=== PATIENT | female | born 1965 | race Hispanic/Latino ===

== ENCOUNTER 2019-02-05 16:50 | Emergency (ER) | payer SELFPAY ==
[~2019-02-05] VITALS: Ht 152.4 cm; Wt 90.3 kg
[~2019-02-05 16:50] MED LIST: AMLODIPINE BESYL5 MG PO; LEVAQUIN500 MG PO; LEVOTHYROXINE50 MCG PO; PROPRANOLOL HCL40 MG PO; ULTRAM 50MG50 MG PO
--- OUTSIDE RECORDS SUMMARY | 2019-02-05 16:53 | XMS REPORT ---
Author Author Admin, [place] Organization [facility] Address [address] [address] Phone Allergies, Adverse Reactions, Alerts Allergy Name Reaction Description Start Date Severity Status Provider No Known Allergies Wendy Bermeo MA Conditions or Problems Problem Name Problem Code Onset Date Status Entry Date Provider Comment Standard Description Annotate Gastroenteritis, viral, acute 008.8 Active Mac Love MD Intestinal infection due to other organism, not elsewhere classified Medication List Medication Instructions Start Date Stop Date Generic Name NDC Status Provider Patient Instruction No Drug Therapy Prescribed - none known did ask Mac Love MD Vital Signs Date Name Value Unit Range Description blood pressure, diastolic 77 mm[Hg] BP rene blood pressure, systolic 108 mm[Hg] BP sys height E&M 64 [in_us] Bdy height pulse rate E&M 72 /min Heart rate respiratory rate E&M 16 /min Resp rate temperature E&M 98.3 [degF] Body temperature weight E&M 190.50 [lb_av] Weight Measured Encounters Date Encounter Provider Code Facility 14:48:35 [facility] New Patient Detailed - 30012 Mac Love MD [id number] [facility]
--- OUTSIDE RECORDS SUMMARY | 2019-02-05 16:53 | XMS REPORT | Clinical Summary ---
Author Author [facility] Address Unknown Phone Unavailable Care Team Providers Care Dry Starch Supervisor Name Role Phone Kamaljit Oliveira MD PCP Allergies No Known Allergies Medications End Date Status Medication Sig Dispensed Refills Start Date Active polyethylene glycol Take 17 g by 255 g 1 (MIRALAX) 17 gram/dose mouth daily 7 oral powderIndications: Mix 17 grams Unspecified constipation into 4 to 8 ounces of water, juice, soda, tea or coffee and drink as directed, one time a day. Active hydrocortisone-pramoxine Apply 1 10 g 0 (EPIFOAM) 1-1 % topical Applicator to 7 foamIndications: affected area Unspecified hemorrhoids 3 times without mention of daily. complication Active loratadine (CLARITIN) 10 Take 1 tablet 90 tablet 1 mg tabletIndications: by mouth 8 Allergic rhinitis, daily. unspecified seasonality, unspecified trigger Active Miscellaneous Medical Nocturnal 1 Each 0 Supply MiscIndications: CPAP at 10 8 ES (obstructive sleep cmH2O with apnea) EPR=2. Active acetaminophen (TYLENOL) Take 2 30 tablet 0 500 mg tabletIndications: tablets by 8 Biliary disease mouth every 6 hours as needed for Pain. Active carvedilol (COREG) 3.125 Take 1 tablet 60 tablet 1 mg tabletIndications: by mouth 2 9 Essential hypertension times daily (with meals). Active amLODIPine (NORVASC) 5 mg Take 1 tablet 90 tablet 1 tabletIndications: by mouth 9 Essential hypertension daily. Active levothyroxine (SYNTHROID) Take 1 tablet 90 tablet 1 75 mcg tabletIndications: by mouth 9 Hypothyroidism, daily. unspecified type Active sertraline (ZOLOFT) 25 mg Take 1 tablet 90 tablet 1 tabletIndications: by mouth 9 Depression with anxiety daily. Active polyethylene glycol Add lukewarm 4000 mL 0 (GOLYTELY) 236-22.74-6.74 drinking 9 -5.86 gram oral water to the solutionIndications: fill farzad (4 Occult blood in stools liters) and shake. Drink as directed by your doctor.. Active Psyllium Husk (METAMUCIL) Take 1 90 capsule 0 0.52 gram capsule by 9 capsuleIndications: mouth daily. Constipation, unspecified constipation type Active traMADol (ULTRAM) 50 mg Take 1 tablet 12 tablet 0 tabletIndications: by mouth 9 Streptococcal infection every 8 hours group A as needed for Pain. Active fluticasone propionate Use 1 [place] 16 g 3 (FLONASE) 50 in each 9 mcg/actuation nasal nostril sprayIndications: Chronic daily. throat pain, Chronic non-seasonal allergic rhinitis, Upper airway cough syndrome Active cetirizine (ZYRTEC) 10 mg Take 1 tablet 90 tablet 1 tabletIndications: by mouth 9 Chronic throat pain, nightly at Chronic non-seasonal bedtime as allergic rhinitis, Upper needed for airway cough syndrome Allergies or Rhinitis. Active benzonatate (TESSALON Take 1 20 capsule 0 PERLES) 100 mg capsule by 9 capsuleIndications: Upper mouth every 8 airway cough syndrome hours as needed for Cough. 04/30/2018 Discontinued amLODIPine (NORVASC) 5 mg Take 1 tablet 90 tablet 1 tabletIndications: by mouth 7 Essential hypertension daily. 04/30/2018 Discontinued loratadine (CLARITIN) 10 Take 1 tablet 90 tablet 1 mg tabletIndications: by mouth 8 Allergic rhinitis, daily. unspecified chronicity, unspecified seasonality, unspecified trigger 04/30/2018 Discontinued carvedilol (COREG) 3.125 Take 1 tablet 60 tablet 1 mg tabletIndications: by mouth 2 8 Essential hypertension times daily (with meals). 04/30/2018 Discontinued sertraline (ZOLOFT) 25 mg Take 1 tablet 90 tablet 1 tabletIndications: by mouth 8 Depression with anxiety daily. 04/30/2018 Discontinued levothyroxine (SYNTHROID) Take 1 tablet 90 tablet 1 75 mcg tabletIndications: by mouth 8 Hypothyroidism, daily. unspecified type 03/25/2018 Discontinued ciclesonide (ZETONNA) 37 Use 1 [place] 6.1 g 1 mcg/actuation nasal HFA in each 8 inhalerIndications: Sinus nostril headache daily. 02/20/2018 Discontinued traMADol (ULTRAM) 50 mg Take 1 tablet 60 tablet 0 tabletIndications: by mouth 2 8 Chronic right-sided low times daily back pain without as needed for sciatica Pain. 03/25/2018 Discontinued traMADol (ULTRAM) 50 mg Take 1 tablet 60 tablet 0 tabletIndications: by mouth 2 8 Chronic right-sided low times daily back pain without as needed for sciatica Pain. 03/25/2018 Discontinued ciclesonide (ZETONNA) 37 Use 1 [place] 6.1 g 1 mcg/actuation nasal HFA in each 8 inhalerIndications: nostril Medication refill daily. 03/25/2018 Discontinued traMADol (ULTRAM) 50 mg Take 1 tablet 60 tablet 0 tabletIndications: by mouth 2 8 Chronic right-sided low times daily back pain without as needed for sciatica Pain. 04/30/2018 Discontinued ciclesonide (ZETONNA) 37 Use 1 [place] 6.1 g 1 mcg/actuation nasal HFA in each 8 inhalerIndications: nostril Medication refill daily. 03/25/2018 Discontinued traMADol (ULTRAM) 50 mg Take 1 tablet 60 tablet 0 tabletIndications: by mouth 2 8 Chronic right-sided low times daily back pain without as needed for sciatica Pain. 05/15/2018 Discontinued traMADol (ULTRAM) 50 mg Take 1 tablet 60 tablet 0 tabletIndications: by mouth 2 8 Chronic right-sided low times daily back pain without as needed for sciatica Pain. 04/30/2018 Discontinued Miscellaneous Medical Nocturnal 1 Each 0 Supply MiscIndications: CPAP at 10 8 Need for influenza cmH2O with vaccination EPR=2. 09/17/2018 Discontinued ciclesonide (ZETONNA) 37 Use 1 [place] 6.1 g 1 mcg/actuation nasal HFA in each 8 inhalerIndications: nostril Allergic rhinitis, daily. unspecified seasonality, unspecified trigger 09/17/2018 Discontinued levothyroxine (SYNTHROID) Take 1 tablet 90 tablet 1 75 mcg tabletIndications: by mouth 8 Hypothyroidism, daily. unspecified type 09/17/2018 Discontinued carvedilol (COREG) 3.125 Take 1 tablet 60 tablet 1 mg tabletIndications: by mouth 2 8 Essential hypertension times daily (with meals). 09/17/2018 Discontinued sertraline (ZOLOFT) 25 mg Take 1 tablet 90 tablet 1 tabletIndications: by mouth 8 Depression with anxiety daily. 09/17/2018 Discontinued amLODIPine (NORVASC) 5 mg Take 1 tablet 90 tablet 1 tabletIndications: by mouth 8 Essential hypertension daily. 06/17/2018 Discontinued traMADol (ULTRAM) 50 mg Take 1 tablet 30 tablet 0 tabletIndications: by mouth 8 Biliary disease every 6 hours as needed for Pain. 10/06/2018 Discontinued Docusate Sodium 100 mg Take by 30 tablet 0 TabIndications: Biliary mouth. 8 disease 10/06/2018 Discontinued Sennosides (SENNA-EXTRA) Take by 30 tablet 0 17.2 mg TabIndications: mouth. 8 Biliary disease 08/13/2018 Discontinued traMADol (ULTRAM) 50 mg Take 1 tablet 30 tablet 0 tabletIndications: by mouth 8 Right-sided low back pain every 6 hours without sciatica, as needed for unspecified chronicity Pain. 09/17/2018 Discontinued traMADol (ULTRAM) 50 mg Take 1 tablet 30 tablet 0 tabletIndications: by mouth 9 Right-sided low back pain every 6 hours without sciatica, as needed for unspecified chronicity Pain. 01/23/2019 Discontinued fluticasone (FLONASE Use 1 [place] 16 g 1 ALLERGY RELIEF) 50 in each 9 mcg/actuation nasal nostril sprayIndications: daily. Allergic rhinitis, unspecified seasonality, unspecified trigger 10/22/2018 Discontinued traMADol (ULTRAM) 50 mg Take 1 tablet 30 tablet 0 tabletIndications: by mouth 9 Right-sided low back pain every 6 hours without sciatica, as needed for unspecified chronicity Pain. 10/16/2018 docusate sodium (COLACE) Take 1 10 capsule 0 50 mg capsuleIndications: capsule by 9 Constipation, unspecified mouth 2 times constipation type daily for 10 days. 11/09/2018 hydrocortisone-pramoxine Insert 1 10 g 0 (PROCTOFOAM HC) 1-1 % Applicator 9 rectal foamIndications: rectally 2 Hemorrhoids, unspecified times daily hemorrhoid type for 10 days. 10/11/2018 nitrofurantoin Take 1 20 capsule 0 (MACRODANTIN) 100 mg capsule by 9 capsuleIndications: Acute mouth 4 times cystitis with hematuria daily for 5 days. 11/21/2018 loratadine (CLARITIN) 10 Take 1 tablet 30 tablet 0 mg tabletIndications: by mouth 9 Streptococcal infection daily for 30 group A days. 11/24/2018 ciprofloxacin HCl (CIPRO) Take 1 tablet 14 tablet 0 500 mg tabletIndications: by mouth 2 9 Acute cystitis with times daily hematuria for 7 days. 01/23/2019 Discontinued cetirizine (ZYRTEC) 10 mg Take 1 tablet 90 tablet 1 tabletIndications: by mouth 9 Chronic throat pain, nightly at Chronic non-seasonal bedtime as allergic rhinitis, Upper needed for airway cough syndrome Allergies or Rhinitis. 01/23/2019 Discontinued fluticasone propionate Use 1 [place] 16 g 3 (FLONASE) 50 in each 9 mcg/actuation nasal nostril sprayIndications: Chronic daily. throat pain, Chronic non-seasonal allergic rhinitis, Upper airway cough syndrome 01/23/2019 Discontinued benzonatate (TESSALON Take 1 20 capsule 0 PERLES) 100 mg capsule by 9 capsuleIndications: Upper mouth every 8 airway cough syndrome hours as needed for Cough. 01/23/2019 Discontinued benzonatate (TESSALON Take 1 20 capsule 0 PERLES) 100 mg capsule by 9 capsuleIndications: Upper mouth every 8 airway cough syndrome hours as needed for Cough. 01/23/2019 Discontinued fluticasone propionate Use 1 [place] 16 g 3 (FLONASE) 50 in each 9 mcg/actuation nasal nostril sprayIndications: Chronic daily. throat pain, Chronic non-seasonal allergic rhinitis, Upper airway cough syndrome 01/23/2019 Discontinued cetirizine (ZYRTEC) 10 mg Take 1 tablet 90 tablet 1 tabletIndications: by mouth 9 Chronic throat pain, nightly at Chronic non-seasonal bedtime as allergic rhinitis, Upper needed for airway cough syndrome Allergies or Rhinitis. 01/23/2019 Discontinued fluticasone propionate Use 1 [place] 16 g 1 (FLONASE ALLERGY RELIEF) in each 9 50 mcg/actuation nasal nostril spray daily. 01/23/2019 Discontinued benzonatate (TESSALON Take 1 20 capsule 0 PERLES) 100 mg capsule by 9 capsuleIndications: Upper mouth every 8 airway cough syndrome hours as needed for Cough. 01/23/2019 Discontinued cetirizine (ZYRTEC) 10 mg Take 1 tablet 90 tablet 1 tabletIndications: by mouth 9 Chronic throat pain, nightly at Chronic non-seasonal bedtime as allergic rhinitis, Upper needed for airway cough syndrome Allergies or Rhinitis. Status Hospital, Clinic, or Ordered Dose Route Frequency Start End Date Other Facility Date Administered Medication Ended penicillin g benzathine 1.2 Million IM ONCE 10/23/19 (BICILLIN L-A) injection Units 19 9 1.2 Million Units Active Problems Problem Noted Date Chronic throat pain 01/23/2019 Recurrent Dysuria - Urine Cultures - Negative 01/23/2019 Chronic right-sided low back pain without sciatica 01/23/2019 IUD (intrauterine device) in place 01/23/2019 SIMONE (generalized anxiety disorder) 01/23/2019 Major depressive disorder without psychotic features 01/23/2019 Drug-seeking behavior 01/23/2019 Chronic non-seasonal allergic rhinitis 01/23/2019 Abnormal uterine bleeding (AUB) 11/18/2017 Chronic midline low back pain without sciatica 08/27/2016 Essential hypertension, benign 12/19/2015 Renal cell cancer 02/18/2014 Solitary kidney 02/18/2014 Resolved Problems Problem Noted Date Resolved Date Biliary disease 04/09/2018 01/23/2019 Overview: Added automatically from request for surgery [id number] Dysmenorrhea 09/04/2017 01/23/2019 Depression 12/19/2015 01/23/2019 Encounters Care Team Description Date Type Specialty Kamaljit Oliveira MD Essential hypertension 02/03/2019 Refill Family Practice Shellie Galicia MD Acute pharyngitis, unspecified etiology (Primary Dx); Chronic throat pain; Chronic non-seasonal allergic rhinitis; Upper airway cough syndrome 01/23/2019 Office Visit Family Practice 01/23/2019 Travel Rodrigo Andrade Colonoscopy 01/07/2019 Telephone Kamaljit Oliveira MD Acute cystitis with hematuria (Primary Dx); Dysuria; Fatty liver; Screening for condition 11/17/2018 Office Visit Family Practice 11/17/2018 Travel Connie Alva NP Streptococcal infection group A (Primary Dx); Acute pharyngitis, unspecified etiology; Sore throat 10/22/2018 Office Visit Family Practice 10/22/2018 Travel Pablo Khan MD Dysuria (Primary Dx); Positive fecal occult blood test; Hemorrhoids, unspecified hemorrhoid type; Constipation, unspecified constipation type; Nodularity of liver; Acute cystitis with hematuria 10/06/2018 Office Visit Family Practice Kamaljit Oliveira MD Consult (called to inform patient to call for appt to GI, no new referral is necessary. VM not set up.) 10/01/2018 Telephone [facility] Kamaljit Oliveira MD 09/29/2018 Hospital Radiology Encounter Kamaljit Oliveira MD Left sided abdominal pain (Primary Dx) 09/29/2018 Orders Only Family Practice Kamaljit Oliveira MD Occult blood in stools (Primary Dx) 09/22/2018 Orders Only Family Practice Kamaljit Oliveira MD Left sided abdominal pain 09/18/2018 Orders Only Family Practice Kamaljit Oliveira MD Essential hypertension (Primary Dx); Left sided abdominal pain; Right-sided low back pain without sciatica, unspecified chronicity; Hypothyroidism, unspecified type; Depression with anxiety; Allergic rhinitis, unspecified seasonality, unspecified trigger; Dietary counseling for Above / Below Normal BMI; Exercise counseling for Above Normal BMI Only!; Screening for condition; Need for vaccination 09/17/2018 Office Visit Family Practice 09/17/2018 Travel Kamaljit Oliveira MD Right-sided low back pain without sciatica, unspecified chronicity 08/13/2018 Refill Family Practice Gia Ross, OD [place], bilateral (Primary Dx); Bilateral dry eyes; Refractive error 06/23/2018 Office Visit Ophthalmology 06/23/2018 Travel Kamaljit Oliveira MD Right-sided low back pain without sciatica, unspecified chronicity (Primary Dx); Elevated liver enzymes; Screening for condition 06/17/2018 Office Visit Family Practice 06/17/2018 Travel Didi Francis Other (staff message) 06/12/2018 Telephone [facility] Francisco Barnes MD CHOLECYSTECTOMY, LAPAROSCOPIC 05/15/2018 Surgery Ree Sorensen, LEXI 05/15/2018 Anesthesia Event Moise Philippe MD Biliary disease (Primary Dx) 05/15/2018 Hospital Encounter Shiloh Shirley, Ree Bee NP 05/09/2018 Hospital Anesthesiology Encounter Kamaljit Oliveira MD Essential hypertension (Primary Dx); Hypothyroidism, unspecified type; SE (obstructive sleep apnea); Allergic rhinitis, unspecified seasonality, unspecified trigger; Depression with anxiety; Need for influenza vaccination; Dietary counseling for Above / Below Normal BMI; Exercise counseling for Above Normal BMI Only!; Need for Tdap vaccination; Screening for condition 04/30/2018 Office Visit [facility] Radha Mancia RN 04/30/2018 Clinical Case Social Work Mgt Didi Francis Other (Staff message) 04/28/2018 Telephone [facility] Moise Philippe MD Biliary dyskinesia (Primary Dx) 04/09/2018 Office Visit General Surgery Eduard Hernandez Interpretation 04/09/2018 Telephone Radha Mancia RN 04/07/2018 Clinical Case Social Work Mgt Kamaljit Oliveira MD Goldbaum, Stephanie, MD Essential hypertension, benign (Primary Dx); Severe sleep apnea; Medication refill; Screening breast examination; Chronic right-sided low back pain without sciatica 03/25/2018 Office Visit [facility] Hernán Early, Fellow() 03/18/2018 Hospital Lab Encounter Hernán Early, Fellow() Fatty liver (Primary Dx); Chronic cholecystitis 03/18/2018 Office Visit Gastroenterology Kamaljit Oliveira MD Chronic right-sided low back pain without sciatica 02/20/2018 Refill Family Practice after 02/04/2018 Immunizations Name Administration Dates Next Due Influenza Vaccine 05/06/2015, 04/15/2014 Influenza Vaccine, 08/19/2017, 06/15/2017 (Deferred: Seasonal, Injectable Contraindication) Influenza, 04/30/2018 Vaccine<FLUCELVAX>(Multi- Dose) Tdap (Tetanus Toxoid, 04/30/2018, 09/12/2017 (Deferred: Patient Refused) Reduced Diphtheria Toxoid And Acellular Pertussis, Absorbed) Zoster Vaccine (Shingrix) 09/17/2018 (Deferred: Vaccine Unavailable), 04/30/2018 (Deferred: Vaccine Unavailable) Family History Medical History Relation Name Comments Hypertension Mother Relation Name Status Comments Brother Alive Brother Alive Brother Alive Brother Alive Brother Alive Brother Alive Brother Alive Daughter Alive Father Alive Maternal Grandfather Maternal Grandmother Mother Alive Paternal Grandfather Paternal Grandmother Sister Alive Son Alive Son Alive Son Alive Social History Date Tobacco Use Types Packs/Day Years Used Never Smoker Smokeless Tobacco: Never Used Tobacco Cessation: Counseling Given: Yes Drinks/Week oz/Week Comments Alcohol Use No Food Insecurity Answer Date Recorded Within the past 12 months, you worried that your Never true 12/31/2017 food would run out before you got money to buy more. Within the past 12 months, the food you bought Never true 12/31/2017 just didn't last and you didn't have money to get more. Sex Assigned at Date Recorded Not on file Industry Job Start Date Occupation Not on file Not on file Not on file Travel End Travel History Travel Start No recent travel history available. Last Filed Vital Signs Reading Time Taken Comments Vital Sign 129/83 01/23/2019 5:19 PM CDT Blood Pressure 66 01/23/2019 5:19 PM CDT Pulse 36.9 C (98.4 F) 01/23/2019 5:19 PM CDT Temperature 18 01/23/2019 5:19 PM CDT Respiratory Rate 96% 10/22/2018 1:13 PM CDT Oxygen Saturation - - Inhaled Oxygen Concentration 86.1 kg (189 lb 14.4 oz) 01/23/2019 5:19 PM CDT Weight 152.4 cm (5') 01/23/2019 5:19 PM CDT Height 37.09 01/23/2019 5:19 PM CDT Body Mass Index Plan of Treatment Health Maintenance Due Date Last Done Comments Breast Cancer Scrn 02/14/2018 02/14/2017, 08/12/2014 (Yearly) Colorectal Cancer Scrn 09/19/2019 09/18/2018, 01/01/2018, 03/22/2017 Annual (FIT/FOBT) Age 50 to 75 Cervical Cancer Scrn (3 09/04/2020 09/04/2017, 03/29/2014 Yrs) Procedures Comments Procedure Name Priority Date/Time Associated Diagnosis CHLAM/GC DNA AMPLI Routine 11/17/2018 Dysuria 2:44 PM CDT DESTINY STAIN STAT 11/17/2018 Dysuria 2:39 PM CDT GENITAL WET MOUNT WITH STAT 11/17/2018 Dysuria DESTINY 2:37 PM CDT UA MICROSCOPIC Routine 11/17/2018 Dysuria 1:58 PM CDT URINE CULTURE Routine 11/17/2018 Dysuria 1:58 PM CDT URINALYSIS STAT 11/17/2018 Dysuria 1:58 PM CDT POC GROUP A STREP SCREEN Routine 10/22/2018 Sore throat 1:42 PM CDT UA MICROSCOPIC Routine 10/06/2018 3:44 PM CDT URINE CULTURE Routine 10/06/2018 Dysuria 3:44 PM CDT URINALYSIS STAT 10/06/2018 Dysuria 3:[address] ABDOMEN AND PELVIS W Routine 09/29/2018 Left sided abdominal pain CONTRAST - ROUTINE 6:19 PM CDT CREATININE POC Routine 09/29/2018 5:46 PM CDT FECAL OCCULT BLOOD Routine 09/18/2018 Left sided abdominal pain 9:02 AM SENIOR ELECTRONICS ENGINEER HEMOCCULT KIT FOR Routine 09/17/2018 Screening for condition SPECIMEN COLLECTION AT 3:57 PM SENIOR ELECTRONICS ENGINEER HOME GENL - CHOLECYSTECTOMY, 05/15/2018 Biliary disease LAPAROSCOPIC (WITH OR 8:26 AM CDT WITHOUT INTRAOP CHOLANGIOGRAM) [facility] Routine 05/15/2018 12:00 AM CDT 12 LEAD EKG STAT 05/09/2018 8:51 AM CDT CBC (WITHOUT Routine 04/30/2018 Essential hypertension DIFFERENTIAL) 3:25 PM CDT FREE T4 Routine 04/30/2018 Hypothyroidism, 3:25 PM CDT unspecified type BASIC METABOLIC PANEL Routine 04/30/2018 Essential hypertension 3:25 PM CDT LIVER PROFILE Routine 04/30/2018 Essential hypertension 3:25 PM CDT THYROID STIMULATING Routine 04/30/2018 Hypothyroidism, HORMONE (TSH) 3:25 PM CDT unspecified type HEMOGLOBIN A1C Routine 03/18/2018 Fatty liver 2:38 PM CDT ACTIN (SM) AB Routine 03/18/2018 Fatty liver 2:38 PM CDT after 02/04/2018 Results * CHLAM/GC DNA AMPLI (11/17/2018 2:44 PM CDT) Chlamydia trach Negative [facility] IMMUNOLOGY N gonorrhoeae Negative [facility] This test utilizes [employer] ([employer]) IMMUNOLOGY Aptima Combo 2 Assay for target amplification of rRNA for the qualitative detection of Chlamydia trachomatis and Neisseria gonorrhea. Spec Endovervical [facility] Description Specimen Cervix - Endocervical Swab Performing Organization Address City/State/Zipcode Phone Number Imonomi [facility] IMMUNOLOGY [facility] * DESTINY STAIN (11/17/2018 2:39 PM CDT) Spec Cervix [facility] Description Order Comments None [facility] Direct Exam No fungus seen by DESTINY [facility] Report Status Final 11/17/2018 [facility] Specimen Cervix - Cervix, NOS Performing Organization Address City/State/Zipcode Phone Number MISYS [facility] * WET MOUNT (11/17/2018 2:37 PM CDT) Spec Cervix [facility] Description Order Comments None [facility] Exam WBC's seen [facility] No Clue cells seen No Trichomonas seen Report Status Final 11/17/2018 [facility] Specimen Cervix - Cervix, NOS Performing Organization Address [facility] Phone Number [facility] * UA MICROSCOPIC (11/17/2018 1:58 PM CDT) Only the most recent of 2 results within the time period is included. WBC >50 (H) 0 - 5 /HPF [facility] RBC 22-30 0 - 4 /HPF [facility] Epithelial Cell <1 /HPF [facility] Bacteria Many [facility] Mucous Present [facility] Specimen Performing Organization Address [facility] Phone Number [facility] * UA CHEMISTRIES (11/17/2018 1:58 PM CDT) Only the most recent of 2 results within the time period is included. Color Yellow [facility] Clarity Cloudy [facility] Specific 1.020 1.001 - 1.035 [facility] Shannon pH 5.5 5 - 8 [facility] Protein Negative NEG [facility] Glucose Negative NEG [facility] Ketones Negative NEG [facility] Bilirubin Negative NEG [facility] Nitrate Negative NEG [facility] Urobilinogen,Se 0.2 0.2 - 1.0 EU/dL [facility] mi-Qn Leukocyte 2+ (A) NEG [facility] Occult Blood 2+ (A) NEG [facility] Specimen Urine Performing Organization Address City/[facility] Phone Number [facility] * URINE CULTURE (11/17/2018 1:58 PM CDT) Only the most recent of 2 results within the time period is included. Spec Urine [facility] Description Order Comments None [facility] Culture 1,000-10,000 CFU/ml [facility] Lactose director corporate communications Gram negative bacilli Mixed uro-genital jamal also present Report Status Final 11/18/2018 [facility] Specimen Urine - Voided, urine Performing Organization Address City/State/Zipcode Phone Number [facility] * POC GROUP A STREP SCREEN (10/22/2018 1:42 PM CDT) Group A Strep positive Neg - Neg POC GAS (Contr) pass Pass - Pass Specimen Throat * CT ABDOMEN AND PELVIS W CONTRAST - ROUTINE (09/29/2018 6:19 PM CDT) Specimen Impressions Performed At IMPRESSION: SMS 1.Fatty liver with mild contour nodularity, which could represent early cirrhotic change. No focal masses. 2.Sigmoid diverticulosis without diverticulitis. 3.Status post right nephrectomy with no evidence of local recurrence of disease. 4.Small partially calcified intramural uterine fibroid with IUD in adequate position. This [facility] radiology report is a preliminary resident dictation until finalized by an attending.Changes to this preliminary report may occur in an additional preliminary or finalized version. I have reviewed the study and agree with the findings in this report. Signed By: Joshua Hawkins M.D., 09/30/2018 9:52 AM Narrative Performed At EXAM: CT ABDOMEN AND PELVIS WITH CONTRAST SMS DATE: 09/29/2018 6:20 PM INDICATION: Left sided abdominal pain. Left sided abdominal pain ADDITIONAL INFORMATION: 53-year-old woman with left-sided abdominal pain and positive FOBT, status post right nephrectomy. Persistent elevation of LFTs, hepatitis testing negative. COMPARISON: CT abdomen from 09/05/2015, pelvic ultrasound from 05/10/2017 TECHNIQUE: Volumetric CT of the abdomen and pelvis is acquired following the intravenous administration of contrast. Axial, coronal and sagittal images are provided. IV contrast: 97 mL of Omnipaque 300 Enteric contrast: None. DLP: 1513 mGy-cm FINDINGS: Lines, tubes and hardware: None. Lower thorax: Unchanged left lower lobe 3 mm nodule (series 2 image 10). There is no pleural effusion or pneumothorax. Liver: Decreased attenuation in keeping with steatosis. There is mild contour nodularity. Biliary tree: No intra- or extrahepatic biliary ductal dilation. Gallbladder: Surgically absent. Pancreas: Normal. Spleen: Thin-walled hypodense lesion with punctate internal calcification may represent a benign hemangioma or cyst. Adrenals: Normal. Kidneys and ureters: Postsurgical changes of right nephrectomy. No evidence of recurrent disease in the surgical bed. The left kidney is unremarkable. Bladder: Decompressed. Reproductive organs: In the right anterior uterine fundus there is a 0.9 x 1.1 cm partially calcified intramural fibroid. An IUD is present and in adequate position. 2 thin-walled cystic structures are present on the right ovary, likely follicles. One contains internal hyperdense material likely representing hemorrhagic follicle. Gastrointestinal tract: Stomach: Normal. Small bowel: Small bowel is normal in caliber and appearance. Colon: Sigmoid diverticulosis without diverticulitis. Appendix: Normal (series 2 image 51). Peritoneum, mesentery and retroperitoneum: No free air, ascites or loculated fluid. Lymph nodes: Normal. Vasculature: Aorta and branches: Normal. IVC and veins: Normal. Portal vasculature: Normal. Bones: No acute abnormality. Age-related degenerative findings. Soft tissues: Normal. Procedure Note Interface, Rad/Mammog In - 09/30/2018 9:57 AM CDT EXAM: CT ABDOMEN AND PELVIS WITH CONTRAST DATE: 09/29/2018 6:20 PM INDICATION: Left sided abdominal pain. Left sided abdominal pain ADDITIONAL INFORMATION: 53-year-old woman with left-sided abdominal pain and positive FOBT, status post right nephrectomy. Persistent elevation of LFTs, hepatitis testing negative. COMPARISON: CT abdomen from 09/05/2015, pelvic ultrasound from 05/10/2017 TECHNIQUE: Volumetric CT of the abdomen and pelvis is acquired following the intravenous administration of contrast. Axial, coronal and sagittal images are provided. IV contrast: 97 mL of Omnipaque 300 Enteric contrast: None. DLP: 1513 mGy-cm FINDINGS: Lines, tubes and hardware: None. Lower thorax: Unchanged left lower lobe 3 mm nodule (series 2 image 10). There is no pleural effusion or pneumothorax. Liver: Decreased attenuation in keeping with steatosis. There is mild contour nodularity. Biliary tree: No intra- or extrahepatic biliary ductal dilation. Gallbladder: Surgically absent. Pancreas: Normal. Spleen: Thin-walled hypodense lesion with punctate internal calcification may represent a benign hemangioma or cyst. Adrenals: Normal. Kidneys and ureters: Postsurgical changes of right nephrectomy. No evidence of recurrent disease in the surgical bed. The left kidney is unremarkable. Bladder: Decompressed. Reproductive organs: In the right anterior uterine fundus there is a 0.9 x 1.1 cm partially calcified intramural fibroid. An IUD is present and in adequate position. 2 thin-walled cystic structures are present on the right ovary, likely follicles. One contains internal hyperdense material likely representing hemorrhagic follicle. Gastrointestinal tract: Stomach: Normal. Small bowel: Small bowel is normal in caliber and appearance. Colon: Sigmoid diverticulosis without diverticulitis. Appendix: Normal (series 2 image 51). Peritoneum, mesentery and retroperitoneum: No free air, ascites or loculated fluid. Lymph nodes: Normal. Vasculature: Aorta and branches: Normal. IVC and veins: Normal. Portal vasculature: Normal. Bones: No acute abnormality. Age-related degenerative findings. Soft tissues: Normal. IMPRESSION IMPRESSION: 1. Fatty liver with mild contour nodularity, which could represent early cirrhotic change. No focal masses. 2. Sigmoid diverticulosis without diverticulitis. 3. Status post right nephrectomy with no evidence of local recurrence of disease. 4. Small partially calcified intramural uterine fibroid with IUD in adequate position. This [facility] radiology report is a preliminary resident dictation until finalized by an attending. Changes to this preliminary report may occur in an additional preliminary or finalized version. I have reviewed the study and agree with the findings in this report. Signed By: Joshua Hawkins M.D., 09/30/2018 9:52 AM Performing Organization Address [facility] Phone Number SMS * CREATININE POC (09/29/2018 5:46 PM CDT) Creatinine POC 0.9 0.6 - 1.3 mg/dL [facility] MAIN-STATION 1 GFR, Estimated >60 mL/min/1.73 m2 [facility] MAIN-STATION 1 GFR, Estim, >60 mL/min/1.73 m2 [facility] Afr-Am MAIN-STATION 1 Specimen Performing Organization Address [facility] Phone Number MISYS [facility] MAIN-STATION 1 * OCCULT BLOOD ICT (09/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) Occult Blood Positive (A) [facility] Specimen Stool Performing Organization Address [facility] Unit[facility] Phone Number MISYS [facility] * [facility] SURGICAL PATHOLOGY (05/15/2018 12:00 AM CDT) HX FINAL GALLBLADDER, CHOLECYSTECTOMY: COPATH DIAGNOSIS - CHRONIC CHOLECYSTITIS "I have personally reviewed the resident's preliminary interpretation and all specimen preparations and have personally issued this report." Specimen Narrative Performed At [facility] Date of 1965 Hospital Number [id number] Location [facility] Post Anesthesiology SURGICAL PATHOLOGY Collected:05/15/2018 00:00 Received: 05/15/2018 11:37 PATHOLOGIC DIAGNOSIS GALLBLADDER, CHOLECYSTECTOMY: - CHRONIC CHOLECYSTITIS "I have personally reviewed the resident's preliminary interpretation and all specimen preparations and have personally issued this report." Pertinent Clinical Information Biliary dyskinesia. Specimen: Gallbladder. Gross Description The specimen is received in one part, labeled with the patient's name, medical record number and "GALLBLADDER" is a gallbladder measuring 7.3 cm x 3 cm in diameter.The specimen has been surgically opened.The free external surface is pink-alfred, smooth and glistening.The hepatic surface has two disrupted areas and the surface is trabeculated, green-alfred, with are no grossly identified masses.No lymph nodes are present.The mucosa is red, trabeculated, focally hemorrhagic with no lesions identified.The thickness of the wall is 0.2 cm.The body, fundus and cystic duct margin are representatively submitted in cassette A1. MOSES BERMEO MD Pathology Resident Microscopic Description A microscopic examination has been performed and the findings are incorporated in the diagnosis above. The positive and negative controls for all histochemical and immunohistochemical stains, if performed for this case, have been reviewed and, unless otherwise noted, have been found to be appropriate. Electronically Signed Out RYANN VARGAS Staff Pathologist Performing Organization Address City/State/Zipcode Phone Number MARYAM FRANCISCO [place], [place] * 12 LEAD EKG (05/09/2018 8:51 AM CDT) 12 LEAD EKG FOR [facility] Test Date:2018-05-09 Pat Name: [facility] Department: Room: Gender: F Block Feeder: ORIN :[id number] [id number] Requested By: Order Number: Willem cage MD: Omer Gilbert Measurements Intervals [place] Rate: 60 P:-3 TN: 171 QRS: -15 QRSD: 88 T:1 QT: 406 QTc:406 Interpretive Statements SINUS RHYTHM LOW QRS VOLTAGE IN PRECORDIAL LEADS Non-specific T-wave changes Poor R-wave progression Abnormal ECG Electronically Signed On 05-09-18 14:24:56 CDT by Omer Gilbert Specimen Performing Organization Address [facility] [place] [facility] Phone Number SMS * TSH (04/30/2018 3:25 PM CDT) TSH 3.91 (H) 0.57 - 3.74 uIU/mL [facility] MAIN-STATION 1 Specimen Blood Performing Organization Address [facility] Phone Number MISYS [facility] MAIN-STATION 1 * FREE T4 (04/30/2018 3:25 PM CDT) Pathologist [facility] Free T4 0.97 0.61 - 1.18 ng/dl BT MAIN-STATION Comment: 1 females: 1st Trimester-0.52-1.10 ng/dL 2nd Trimester=0.45-0.99 ng/dL 3rd Trimester=0.48-0.95 ng/dL Specimen Blood Performing Organization Address [facility] Phone Number MISYS BT MAIN-STATION 1 * LIVER PROFILE (04/30/2018 3:25 PM CDT) Pathologist [facility] Protein, Total, 7.4 6.0 - 8.3 g/dL [facility]IN[facility]ATION Serum 1 Albumin 3.7 3.7 - 5.3 g/dL [facility]IN[facility] 1 Bilirubin, 0.4 0.2 - 1.2 mg/dL [facility] Total 1 Alkaline 77 34 - 104 U/L [facility]IN[facility] Phosphatase, S 1 AST (SGOT) 72 (H) 13 - 39 U/L BT MAIN-STATION 1 ALT 68 (H) 7 - 52 U/L BT MAIN-STATION 1 D Bilirubin 0.1 0.0 - 0.2 mg/dL [facility] MAIN-STATION 1 Specimen Blood Performing Organization Address [facility] Phone Number MISYS BT MAIN-STATION 1 * CBC (04/30/2018 3:25 PM CDT) WBC 9.6 4.5 - 11.0 K/uL BT MAIN-STATION 2 RBC 4.91 4.20 - 5.40 M/uL BT MAIN-STATION 2 Hemoglobin 15.3 12.0 - 16.0 g/dL BT MAIN-STATION 2 Hematocrit 46.3 37.0 - 47.0 % BT MAIN-STATION 2 MCV 94 (H) 82 - 92 fL BT MAIN-STATION 2 MCH 31.2 27.0 - 32.0 pg BT MAIN-STATION 2 MCHC 33.0 32.0 - 36.0 g/dL BT MAIN-STATION 2 RDW 45.2 36.4 - 46.3 fL BT MAIN-STATION 2 Platelets 264 150 - 400 K/uL BT MAIN-STATION 2 Mean Platelet 12.4 9.4 - 12.4 fL BT MAIN-STATION Volume 2 Percent NRBC 0.0 BT MAIN-STATION 2 Absolute NRBC 0.00 BT MAIN-STATION 2 Specimen Blood Performing Organization Address [facility] Phone Number MISYS MAIN-STATION 2 * BASIC METABOLIC PANEL (04/30/2018 3:25 PM CDT) Pathologist [facility] CO2 25 21 - 31 mmol/L BT MAIN-STATION 1 Chloride 104 98 - 107 mmol/L BT MAIN-STATION 1 Potassium 4.2 3.5 - 5.1 mmol/L BT MAIN-STATION 1 Sodium 138 136 - 145 mmol/L BT MAIN-STATION 1 Glucose 90 70 - 110 mg/dL BT MAIN-STATION 1 BUN 13 7 - 25 mg/dL [facility] MAIN-STATION 1 Creatinine 0.80 0.6 - 1.2 mg/dL BT MAIN-STATION 1 Anion Gap 9 BT MAIN-STATION 1 Calcium 9.1 8.6 - 10.3 mg/dL BT MAIN-STATION 1 GFR, Estimated >60 mL/min/1.73 m2 BT MAIN-STATION 1 eGFR If Africn >60 mL/min/1.73 m2 MAIN-STATION Am 1 Specimen Blood Performing Organization Address [facility] Phone Number MISYS MAIN-STATION 1 * HEMOGLOBIN A1C (03/18/2018 2:38 PM CDT) Pathologist [facility] Hemoglobin A1c 5.8 4.3 - 6.1 % [facility] MAIN-STATION 1 Est Average 119.8 mg/dL [facility] MAIN-STATION 1 Specimen Blood Performing Organization Address [facility] Phone Number MISYS [facility] MAIN-STATION 1 * ACTIN (SM) AB (03/18/2018 2:38 PM CDT) Actin Smooth 11 LABORATORY Mus Reference range: 0 to 19 CORPORATION OF Unit: Units ROMAN (note) Negative 0 - 19 Weak positive 20 - 30 Moderate to strong positive >30 Actin Antibodies are found in 52-85% of patients with autoimmune hepatitis or chronic active hepatitis and in 22% of patients with primary biliary cirrhosis. Specimen Blood Performing Organization Address City/State/Zipcode Phone Number [employer] OF [address] [place] [address] [place] [id number] after 02/04/2018 Insurance Type Payer Benefit Subscriber ID Effective Phone Address Plan / Dates Group [employer] PLAN H[employer] PLAN xxxxxx 2018 [address] [place] [address] Advance Directives Date Inactivated Comments Code Status Date Activated 03/04/2014 6:04 PM Full Code 03/04/2014 10:42 AM 02/19/2014 9:14 PM Full Code 02/18/2014 9:31 PM 12/13/2013 8:48 PM Full Code 12/11/2013 3:49 PM
--- OUTSIDE RECORDS SUMMARY | 2019-02-05 16:53 | XMS REPORT ---
Author [facility] Address Unknown Phone Unavailable Care Team Providers Care Prototype Engineer Name Role Phone Unavailable Unavailable Problems This patient has no known problems. Allergies, Adverse Reactions, Alerts This patient has no known allergies or adverse reactions. Medications This patient has no known medications. Encounters Start Date/Time End Date/Time Encounter Type Admission Type Attending [facility] Facility Care Department Encounter ID 2019-01-23 17:17:30 2019-01-23 17:17:30 Outpatient [facility] [id number] 2018-12-24 00:00:00 2018-12-24 00:00:00 Outpatient [facility] [id number] 2018-12-23 00:00:00 2018-12-23 00:00:00 Outpatient [facility] [id number] 2018-11-17 13:38:19 2018-11-17 13:38:19 Outpatient [facility] [id number] 2018-10-22 13:12:20 2018-10-22 13:12:20 Outpatient [facility] [id number] 2018-10-22 00:00:00 2018-10-22 00:00:00 Outpatient [facility] [id number] 2018-10-15 00:00:00 2018-10-15 00:00:00 Outpatient [facility] [id number] 2018-10-06 15:45:28 2018-10-06 15:45:28 Outpatient [facility] [id number] 2018-09-29 16:50:55 2018-09-29 16:50:55 Outpatient [facility] [id number] 2018-09-18 09:11:10 2018-09-18 09:11:10 Outpatient [facility] [id number] 2018-09-17 15:47:02 2018-09-17 15:47:02 Outpatient [facility] [id number] 2018-06-23 14:52:29 2018-06-23 14:52:29 Outpatient [facility] [id number] 2018-06-17 14:00:38 2018-06-17 14:00:38 Outpatient [facility] [id number] 2018-06-02 00:00:00 2018-06-02 00:00:00 Outpatient [facility] [id number] 2018-05-15 05:44:00 2018-05-15 05:44:00 [facility] [id number] 2018-05-15 00:00:00 2018-05-15 00:00:00 Outpatient [facility] [id number] 2018-05-15 00:00:00 2018-05-15 00:00:00 Outpatient [facility] [id number] 2018-05-09 08:24:35 2018-05-09 08:24:35 Outpatient [facility] [id number] 2018-05-09 00:00:00 2018-05-09 00:00:00 Outpatient [facility] [id number] 2018-05-08 00:00:00 2018-05-08 00:00:00 Outpatient [facility] [id number] 2018-04-30 15:30:51 2018-04-30 15:30:51 Outpatient [facility] [id number] 2018-04-30 14:00:01 2018-04-30 14:00:01 Outpatient [facility] [id number] 2018-04-30 00:00:00 2018-04-30 00:00:00 Outpatient [facility] [id number] 2018-04-09 08:30:48 2018-04-09 08:30:48 Outpatient [facility] [id number] 2018-04-09 00:00:00 2018-04-09 00:00:00 Outpatient [facility] [id number] 2018-04-07 00:00:00 2018-04-07 00:00:00 Outpatient [facility] [id number] 2018-03-25 13:40:22 2018-03-25 13:40:22 Outpatient [facility] [id number] 2018-03-18 14:38:33 2018-03-18 14:38:33 Outpatient [facility] [id number] 2018-03-18 13:23:00 2018-03-18 13:23:00 Outpatient [facility] [id number] 2018-03-04 00:00:00 2018-03-04 00:00:00 Outpatient [facility] [id number] 2018-02-27 00:00:00 2018-02-27 00:00:00 Outpatient [facility] [id number] 2018-01-16 00:00:00 2018-01-16 00:00:00 Outpatient [facility] [id number] 2018-01-01 09:33:33 2018-01-01 09:33:33 Outpatient [facility] [id number] 2017-12-31 15:49:23 2017-12-31 15:49:23 Outpatient [facility] [id number] 2017-12-16 00:00:00 2017-12-16 00:00:00 Outpatient [facility] [id number] 2017-11-26 00:00:00 2017-11-26 00:00:00 Outpatient [facility] [id number] 2017-11-18 15:32:47 2017-11-18 15:32:47 Outpatient [facility] [id number] 2017-10-31 00:00:00 2017-10-31 00:00:00 Outpatient [facility] [id number] 2017-10-31 00:00:00 2017-10-31 00:00:00 Outpatient [facility] [id number] 2017-10-30 00:00:00 2017-10-30 00:00:00 Outpatient [facility] [id number] 2017-10-02 10:52:50 2017-10-02 10:52:50 Outpatient [facility] [id number] 2017-10-02 09:51:29 2017-10-02 09:51:29 Outpatient [facility] [id number] 2017-10-01 12:47:56 2017-10-01 12:47:56 Outpatient [facility] [id number] 2017-09-26 00:00:00 2017-09-26 00:00:00 Outpatient [facility] [id number] 00:00:00 2017 00:00:00 Outpatient [facility] [id number] 2017-09-23 16:09:18 2017-09-23 16:09:18 Outpatient [facility] [id number] 2017-09-23 15:04:33 2017-09-23 15:04:33 Outpatient [facility] [id number] 2017-09-16 09:21:14 2017-09-16 09:21:14 Outpatient [facility] [id number] 2017-09-12 14:22:27 2017-09-12 14:22:27 Outpatient [facility] [id number] 2017-09-04 08:12:10 2017-09-04 08:12:10 Outpatient [facility] [id number] 2017-08-19 14:21:06 2017-08-19 14:21:06 Outpatient [facility] [id number] 2017-06-19 10:23:12 2017-06-19 10:23:12 Outpatient [facility] [id number] 2017-06-15 15:54:34 2017-06-15 15:54:34 Outpatient [facility] [id number] 2017-05-10 16:07:05 2017-05-10 16:07:05 Outpatient [facility] [id number]
[2019-02-05] MEDS ORDERED: ONDANSETRON HCL INJ 2MG/ML 2ML 2 MG/ML VIAL IV ONE (18:27)
[2019-02-05] MEDS ORDERED: MORPHINE SULFATE INJ 4 MG/ML INJ 1ML IV ONE (18:27)
[2019-02-05] MEDS ORDERED: SODIUM CHLORIDE 0.9% 1000ML 1,000 ML IV STA (18:27)
[2019-02-05 18:44] LABS: BILIRUBIN,URINE NEGATIVE (NEGATIVE); CLARITY,URINE SL CLOUDY (CLEAR); COLOR,URINE YELLOW (YELLOW); KETONES,URINE NEGATIVE (NEGATIVE); LEUKOCYTE ESTERASE ,URINE SMALL (NEGATIVE); NITRITE,URINE NEGATIVE (NEGATIVE); PROTEIN,URINE DIPSTICK TRACE (NEGATIVE); URINE UROBILINOGEN 0.2 mg/dL (0.2 - 1)
[2019-02-05 18:48] LABS: BASOPHILS % 0.3 % (0.0-1.0); EOSINOPHILS # (AUTO) 0.1 (0.0-0.4); EOSINOPHILS % 0.4 % (0.0-6.0); HEMATOCRIT 44.3 % (34.2-44.1); HEMOGLOBIN 15.1 g/dL (12.0-16.0); LYMPHOCYTES # (AUTO) 1.4 (1.0-3.2); LYMPHOCYTES % 9.8 % (18.0-39.1); MEAN CORPUSCULAR HEMOGLOBIN 30.9 pg (28-32); MEAN CORPUSCULAR HGB CONC 34.1 g/dL (31-35); MEAN CORPUSCULAR VOLUME 90.8 fL (81-99); MONOCYTES # (AUTO) 0.6 (0.2-0.8); MONOCYTES % 4.1 % (4.4-11.3); NEUTROPHILS % 84.6 % (38.7-80.0); PLATELET COUNT 236 x10e3/uL (140-360); RED BLOOD COUNT 4.88 x10e6/uL (3.6-5.1); RED CELL DISTRIBUTION WIDTH 13.2 % (11.7-14.4)
[2019-02-05 19:04] LABS: BACTERIA,URINE MANY /HPF; EPITHELIAL CELLS,URINE FEW /LPF
[2019-02-05 19:05] LABS: AMORPHOUS SEDIMENT,URINE FEW (FEW)
[2019-02-05 19:06] LABS: ALANINE AMINOTRANSFERASE 85 IU/L (0-55); ALBUMIN 3.3 g/dL (3.5-5.0); ALBUMIN/GLOBULIN RATIO 0.8 (0.8-2.0); ALKALINE PHOSPHATASE 112 IU/L (40-150); ANION GAP 15.4 mmol/L (8-16); BLOOD UREA NITROGEN 13 mg/dL (7-26); BUN/CREATININE RATIO 14 (6-25); CALCIUM 8.8 mg/dL (8.4-10.2); CARBON DIOXIDE 22 mmol/L (22-29); CHLORIDE 101 mmol/L (98-107); CREATININE, SERUM 0.94 mg/dL (0.57-1.11); EST GLOMERULAR FILTRATION RATE > 60 ML/MIN (60-); GLUCOSE 100 mg/dL (74-118); POTASSIUM 3.4 mmol/L (3.5-5.1); SODIUM 135 mmol/L (136-145)
[2019-02-05 19:45] LABS: AMYLASE 57 U/L (25-125); LIPASE 29 U/L (8-78)
--- NOTE | 2019-02-05 20:49 | Diagnostic Imaging Report ---
EXAM: CT Abdomen and Pelvis WITH contrast INDICATION: ^abdominal pain ^[id number] ^1949 ^Y COMPARISON: None. TECHNIQUE: Abdomen and pelvis were scanned utilizing a multidetector helical scanner from the lung base to the pubic symphysis after administration of IV contrast. Coronal and sagittal reformations were obtained. Routine protocol was performed. Scan was performed when during portal venous phase. IV CONTRAST: 100 mL of Isovue-370 ORAL CONTRAST: Water RADIATION DOSE: Total DLP: 7:15 mGy*cm Estimated effective dose: (DLP x 0.015 x size factor) mSv COMPLICATIONS: None FINDINGS: LINES and TUBES: None. LOWER THORAX: Unremarkable HEPATOBILIARY: No focal hepatic lesions. No biliary ductal dilation. GALLBLADDER: Cholecystectomy. SPLEEN: No splenomegaly. PANCREAS: No focal masses or ductal dilatation. ADRENALS: No adrenal nodules KIDNEYS/URETERS: Kidneys enhance symmetrically. No hydronephrosis. No cystic or solid mass lesions. No stones. GI TRACT: Mild fat stranding surrounding the ascending colon, best seen on series 2, image 40 with minimal wall thickening but no diverticula. Scattered diverticulosis throughout the sigmoid colon without diverticulitis. No bowel dilatation or obstruction. Appendix is normal. PELVIC ORGANS/BLADDER: Unremarkable. Intrauterine device appears in adequate position. LYMPH NODES: No lymphadenopathy. VESSELS: Unremarkable. PERITONEUM / RETROPERITONEUM: No free air or fluid. BONES: Unremarkable. SOFT TISSUES: Unremarkable. IMPRESSION: Mild pericolonic fat stranding in the ascending colon is suggestive of mild colitis, which may be inflammatory or infectious. Signed by: Dr. Enid Molina M.D. on 02/05/2019 8:46 PM
[2019-02-05] MEDS ORDERED: CIPROFLOXACIN 500 MG TAB PO ONE (21:15)
[2019-02-05] MEDS ORDERED: PROMETHAZINE 12.5MG/ NACL 0.9% 50 ML IV ONE (21:15)
[2019-02-05] MEDS ORDERED: PROMETHAZINE 12.5MG/ NACL 0.9% 12.5 MG/50 ML BAG IV ONE (21:15)
[2019-02-05] MEDS ORDERED: METRONIDAZOLE 500MG/NS 100ML 100 ML IV ONE (21:15)
[2019-02-05] MEDS ORDERED: MORPHINE SULFATE INJ 4 MG/ML INJ 1ML IV PRN (21:15)
[2019-02-05] MEDS ORDERED: CIPROFLOXACIN 400 MG/D5W 200ML 200 ML IV SCH (21:15)
[2019-02-05] MEDS ORDERED: METRONIDAZOLE 750MG/NS 150ML 150 ML IV SCH (22:00)
[2019-02-05] MEDS ORDERED: METOCLOPRAMIDE HCL 10 MG/2ML VIAL IV ONE (22:30)
[2019-02-05] MEDS ORDERED: IOPAMIDOL 370 MG/ML 200 ML INFUS..BTL INJ ONE (22:36)
[2019-02-05] MEDS ORDERED: SODIUM CHLORIDE 0.9% 50ML 50 ML ONE (22:36)
[2019-02-05 23:53] VITALS: BP 118/77
== END 2019-02-05 23:00 | disposition home or self-care (01) ==
LOC: ER 16:50
DX: R10.11 Right upper quadrant pain (principal); R10.12 Left upper quadrant pain; R10.13 Epigastric pain; R11.2 Nausea with vomiting, unspecified; R19.7 Diarrhea, unspecified; K52.9 Noninfective gastroenteritis and colitis, unspecified
CPT/HCPCS: 36415; 74177; 80053; 81001; 82150; 83690; 85025; 99284; J2270; J2405; J2550; J2765; J7030; Q9967

== ENCOUNTER 2020-08-20 23:58 | Emergency (ER) | payer OTHER ==
[~2020-08-20] VITALS: Ht 152.4 cm; Wt 90.3 kg
[2020-08-21] MEDS ORDERED: KETOROLAC TROMETHAMINE 30 MG/ML VIAL IM STA (00:29)
[2020-08-21] MEDS ORDERED: IBUPROFEN600 MG PO (00:50)
[2020-08-21] MEDS ORDERED: DEXAMETHASONE 4 MG TAB ONE (01:03)
== END 2020-08-21 02:25 | disposition home or self-care (01) ==
LOC: ER 08-21 00:26
DX: M25.562 Pain in left knee (principal); M25.561 Pain in right knee; W18.30XA Fall on same level, unspecified, initial encounter; I10 Essential (primary) hypertension; E03.9 Hypothyroidism, unspecified; Z85.528 Personal history of other malignant neoplasm of kidney
CPT/HCPCS: 73562 ×2; 99283; J1885

== ENCOUNTER 2020-10-17 14:19 | Emergency (ER) | payer OTHER ==
[~2020-10-17] VITALS: Ht 152.4 cm; Wt 90.3 kg
[~2020-10-17 14:19] MED LIST changes: +IBUPROFEN600 MG PO
[2020-10-17] MEDS ORDERED: HYDROCODONE/APAP 5MG-325MG TAB PO STA (15:14)
[2020-10-17] MEDS ORDERED: HYDROCODON-ACE1 EA11 PO (17:08)
== END 2020-10-17 17:06 | disposition home or self-care (01) ==
LOC: ER 14:27
DX: M25.561 Pain in right knee (principal); M25.461 Effusion, right knee; I10 Essential (primary) hypertension; E03.9 Hypothyroidism, unspecified; Z85.528 Personal history of other malignant neoplasm of kidney
CPT/HCPCS: 99283